=== PATIENT | male | born 2000 | race Caucasian/White ===

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

== ENCOUNTER 2022-05-04 16:25 | Emergency (ER) | payer BC, SELFPAY ==
[2022-05-04 16:45] VITALS: BP 124/76; PULSE 83; RESP 18; TEMP 36.8; O2SAT 98; BMI 29.7
--- NOTE | 2022-05-04 16:58 | EXP.UTC ---
Discharge Plan Disposition Patient Disposition: Home, Self-Care Condition: Good Prescriptions Prescriptions: New amoxicillin-pot clavulanate 875-125 mg Tablet 1 tab PO Q12H Qty: 14 0RF fluticasone propionate [Flonase Allergy Relief] 50 mcg/actuation spray,suspension 1 spray intranasal DAILY Qty: 16 0RF Rx Instructions: administer into each nostril gentamicin 0.3 % drops 1 - 2 drp ophthalmic (eye) Q4H Qty: 5 0RF Rx Instructions: in both eyes as directed No Action dextroamphetamine-amphetamine [Adderall] 10 mg tablet 10 mg PO DAILY PRN (Reason: attention) Qty: 30 0RF Referrals Follow up/Referrals: Myles Martinez MD [Primary Care Provider] - See instructions Activity Restrictions/Add. Instructions Additional Instructions/Restrictions: Wash hands well before and after applying eye drops Use drops as directed Follow up with Eye Doctor if no improvement or any worsening of symptoms Take oral antibiotics as prescribed for sinusitis Follow up with your Family Doctor if no improvement or any worsening of symptoms Clinical Impressions Clinical Impression: Sinusitis, Conjunctivitis Instructions Patient Instructions: DI for Sinusitis, Sinusitis, DI for Conjunctivitis, Conjunctivitis Discharge ED Provider: Sharifa Davis [facility] General Stated complaint: R/L eye redness Mode of Arrival: Ambulatory Source of Information: Patient Limitations: No Limitations Time Seen by Provider: 05/04/22 16:58 Description of Symptoms (Recalled from Triage Doc. by RN): PATIENT C/O REDNESS TO BILATERAL EYES X 5 DAYS HEENT Symptoms (Recalled from RN notes): Yes Resp Symptoms (Recalled from RN notes): No Skin Symptoms (Recalled from RN notes): No MS Symptoms (Recalled from RN notes): No Functional Status (Recalled from RN notes): WNL History of Present Illness Provider Complaint: Patient states that he has been having sinus pain and pressure and redness, drainage and matting to both eyes for the last 3-4 days States that today he wasnt feeling any better so he came in to get checked Related Data Previous Rx's Medication Instructions Recorded dextroamphetamine-amphetamine 10 10 mg PO DAILY PRN attention #30 04/23/22 mg tablet (Adderall) tabs amoxicillin 875 mg-potassium 1 tab PO Q12H #14 tabs 05/04/22 clavulanate 125 mg tablet fluticasone propionate 50 1 spray intranasal DAILY #16 grams 05/04/22 mcg/actuation nasal spray,suspension (Flonase Allergy Relief) gentamicin 0.3 % eye drops 1 - 2 drp ophthalmic (eye) Q4H #5 05/04/22 mL Allergies Allergy/AdvReac Type Severity Reaction Status Date / Time No Known Allergies Allergy Verified 05/04/22 16:56 Worker's Comp Is this a Worker's Comp case?: [facility] Dis[facility]: The information contained in this section may have been updated after the patient was seen, as this information can be updated by other users. 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 (ectasy; last time was about 3 months ago; only used this 1 time) current occupational status: unemployed and other Travel in the last 8 weeks: None number of children: 0 ROS Obtained: Yes All systems reviewed & no additional complaints except as documented and Yes Systems reviewed as appropriate & no additional complaints except as documented Constitutional Constitutional: Reports system reviewed and no additional complaints, except as documented and Reports as per HPI Eyes Eyes: Reports system reviewed and no additional complaints, except as documented, Reports as per HPI, Reports eye discha
[2022-05-04 17:15] VITALS: BP 124/76; PULSE 83; RESP 18; TEMP 36.8; O2SAT 98
== END 2022-05-04 17:18 | disposition home or self-care (01) ==
PROVIDERS: Emergency Provider Nurse Practitioner; PCP Internal Medicine Adolescent Medicine
DX: J32.9 Chronic sinusitis, unspecified (principal); H10.9 Unspecified conjunctivitis
CPT/HCPCS: 99212; 99213; G0463

== ENCOUNTER 2023-05-06 15:17 | Outpatient (CLI) | payer BC, SELFPAY ==
--- NOTE | 2023-05-06 15:21 | XR_ITS ---
FINAL REPORT CLINICAL HISTORY: .closed thumb in car trunk distal phalanx bruised at nail bed pain FINDINGS: Left thumb Three views were obtained. There is no acute fracture or dislocation. The joint spaces appear normal. No soft tissue abnormality is identified. IMPRESSION: No acute process. Reviewed, Interpreted and Dictated by Kendall Lomeli MD Transcribed by Krystal Layne Authenticated and [facility]
== END 2023-05-06 23:59 ==
LOC: RAD 15:18
PROVIDERS: PCP Internal Medicine Adolescent Medicine; Visit Provider Physician Assistant
DX: M79.645 Pain in left finger(s) (principal)
CPT/HCPCS: 73140